=== PATIENT | male | born 1960 | race Caucasian/White ===

== ENCOUNTER 2022-03-19 15:15 | Outpatient (CLI) | payer OTHER, SELFPAY ==
--- NOTE | 2022-03-19 15:32 | MR_ITS ---
WS: [id number] MRI BRAIN WITHOUT CONTRAST HISTORY: HEADACHE/HISTORY OF BRAIN TUMOR COMPARISON: 07/20/2018 TECHNIQUE: Diffusion imaging, multiplanar T1, T2 and FLAIR imaging obtained. No evidence for acute infarct or hemorrhage. Amaro-white matter differentiation is normal. 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 There is adjacent gliosis in the frontal lobe and ex vacuole dilatation of the lateral ventricle . 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 Small amount of hemorrhage in th e resection site in the LEFT frontal lobe. No inferior displacement of the cerebellar tonsils. Dural venous sinuses and three affiliated of Mathur demonstrate no abnormality on this unenhanced studies. Paranasal sinuses: Clear. Mastoid air cells: Normal. Calvarium and scalp: Status post LEFT frontal craniotomy. Similar to the prior examination. MR/MR head wo con* [id number] IMPRESSION: 1. Status post LEFT frontal craniotomy and LEFT frontal lobe tumor resection. 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 Ex vacuole dilatation of the LEFT lateral vent ricle also stable. This study was performed without IV contrast. 2. Mild small vessel ischemic changes. Overall the appearance of the brain and unenhanced postsurgical changes are similar to 07/20/2018.
== END 2022-03-19 15:16 | disposition home or self-care (01) ==
LOC: RAD 15:15
PROVIDERS: PCP Nurse Practitioner Family; Visit Provider Nurse Practitioner Family
DX: R51.9 Headache, unspecified (principal); Z87.898 Personal history of other specified conditions
CPT/HCPCS: 70551

== ENCOUNTER 2025-02-14 15:21 | Outpatient (CLI) | payer OTHER, SELFPAY ==
--- NOTE | 2025-02-14 15:41 | MR_ITS ---
WS: [id number] MRI HEAD WITHOUT CONTRAST TECHNIQUE: Sagittal T1, T2 axial, T2 axial FLAIR, axial and coronal T1 images, axial susceptibility weighted imaging, axial diffusion weighted images, and coronal T2 images were obtained. CLINICAL INFORMATION: HISTORY OF BRAIN TUMOR/HEADACHE COMPARISON: MRI 2021 FINDINGS: Prior postoperative changes LEFT frontal craniotomy with LEFT frontal lobe resection cavity. Ex vacuo dilatation LEFT lateral ventricle similar to previous. Encephalomalacia and gliosis in the resection cavity this is similar to previous. Gadolinium not administered today. No evidence of increasing edema or mass effect. No restricted diffusion to suggest acute ischemia. Small amount of chronic hemosiderin about the resection cavity. Normal optic chiasm and pituitary infundibulum. Normal posterior fossa. Normal vascular flow voids at the skull base. Paranasal sinuses and mastoid air cells are well aerated. MR/MR head wo con* [id number] IMPRESSION: 1. Overall no remarkable changes compared to previous. 2. Stable LEFT frontal resection cavity with associated encephalomalacia and g liosis. 3. No evidence of increasing edema or mass effect. Gadolinium not administered today. 4. Stable ex vacuo dilatation LEFT lateral ventricle. No hydrocephalus. 5. No other acute findings.
== END 2025-02-14 15:22 | disposition home or self-care (01) ==
LOC: RAD 15:23
PROVIDERS: PCP Nurse Practitioner Family; Visit Provider Nurse Practitioner Family
DX: G93.89 Other specified disorders of brain (principal); R51.9 Headache, unspecified; Z87.898 Personal history of other specified conditions
CPT/HCPCS: 70551